=== PATIENT | male | born 1935 | race Caucasian/White ===

== ENCOUNTER 2017-06-24 21:34 | Emergency (ER) | payer MEDICARE ==
[~2017-06-24 21:34] MED LIST: ACCU10 PO; ACCU20 PO; ASA5GR PO; AUG875 PO; FOLIC PO; GLUCOTROL5 PO; HABIT21 TOP; MUCINEX600 MG PO; MULTIVITAMI1 PO; NORCO1 TAB PO; NORV10 PO; PROAIR HFA INH; PROTONIX PO; ROXICODONE15 MG PO; SPIRIVA INH; SYMBICORT 160/41 INH INH; TOPXL25 PO; VALIUM10 MG PO
== END 2017-06-24 23:35 | disposition home or self-care (01) ==
LOC: ER 21:34
DX: T63.441A Toxic effect of venom of bees, accidental (unintentional), initial encounter (principal); I10 Essential (primary) hypertension; E11.9 Type 2 diabetes mellitus without complications; F17.200 Nicotine dependence, unspecified, uncomplicated; Z91.038 Other insect allergy status; Z79.84 Long term (current) use of oral hypoglycemic drugs; Z79.82 Long term (current) use of aspirin; Z79.899 Other long term (current) drug therapy
CPT/HCPCS: 96374; 99283; J1200